=== PATIENT | male | born 1980 ===

== ENCOUNTER → 2018-09-16 | Outpatient (CLI) | payer OTHER | LOC: M OUTALCOH 11:54 | PROVIDERS: ATTEND Psychiatry & Neurology Psychiatry | DX: Z03.89 Encounter for observation for other suspected diseases and conditions ruled out (principal) ==

== ENCOUNTER 2018-09-28 10:52 | Outpatient (RCR) | payer OTHER | END 2018-10-13 | LOC: M OUTALCOH 10:52 | PROVIDERS: ATTEND Psychiatry & Neurology Psychiatry | DX: Z03.89 Encounter for observation for other suspected diseases and conditions ruled out (principal) ==